=== PATIENT | female | born 1950 | race Caucasian/White ===

== ENCOUNTER 2016-06-08 08:48 | Day surgery (SDC) | payer OTHER, MEDICARE ==
[~2016-06-08] VITALS: Ht 154.9 cm; Wt 66.7 kg
[~2016-06-08 08:48] MED LIST: LEVO125T11 PO; LIDOCAINE 1% (10mg/ml) 2ml SDV INJ ONE; LR 1,000 ML IV SCH; MUPI22OI2 TOP; TACR100O2 TOP
[2016-06-08 09:09] VITALS: BP 123/76; PULSE 68; RESP 16; TEMP 98.1; O2SAT 96; Ht 154.9 cm; Wt 66.7 kg
--- NOTE | 2016-06-08 09:42 | ANESPREOP ---
Anesthesia Record Date and Time DATE: 06/08/16 TIME: 09:40 Pre-Op Diagnosis screening Proposed Surgical Procedure COLONOSCOPY NPO since: mn Allergies: Coded Allergies: ibuprofen (Verified Allergy, Mild, RASH, 06/08/16) Penicillins (Verified Allergy, Unknown, rashes around eyes, 06/08/16) Ht/Wt/BMI Height: 5 ' 1.00 " Weight: 66.700 kg BMI: 27.8 kg/m2 Vital Signs Date Time Temp Pulse Resp B/P Pulse Ox O2 Delivery O2 Flow Rate FiO2 06/08/16 09:09 98.1 68 16 123/76 96 Room Air Medications Inpatient Medications Current Medications Medications (Trade) Dose Ordered Sig/Salvador Start Time Stop Time Status Last Admin Dose Admin Lactated Ringer's (Lactated Ringers) 1,000 ml @ 50 mls/hr Q20H 06/08/16 07:00 06/08/16 09:35 50 MLS/HR Levothyroxine Sodium (Levothyroxine Sodium) 125 Mcg Tablet, 0.5 TAB PO DAILY, ( Reported) Last Taken: on 06/07/16 0300 Mupirocin (Mupirocin) 22 Gm Oint...g., 1 APPLIC TOP TID PRN for RASH, (Reported) Last Taken: on Unknown Date & Time Tacrolimus (Protopic) 100 Gm Oint...g., 1 APPLIC TOP BID PRN for RASH, (Reported) Last Taken: on Unknown Date & Time Currently on Beta Donnell: No Medical/Surgical History Anesthesia PMH: Reports: Arthritis, Hiatal Hernia (HX 1972), Other (stress test due to family history, personel history of chest pain most likely dur to GERD), Reflux, Thyroid Disease (hypothyroidism ), Denies: *Diabetes, Anesthesia Reactions (NO AIRWAY ISSUES), Cancer, Clotting Problems, Glaucoma, Malignant Hyperthermia, Renal Disease, Sleep Apnea Smoking Status: Never smoker Substance Use Type: does not use Alcohol Intake: none HX of Last Menstrual Period: AGE 59 Past Surgical History Orthopedic Surgeries: Abdominal Surgeries: Genitourinary Surgeries: Cardiac Surgeries: Endocrine Surgeries: Reproductive Surgeries: Neurological Surgeries: Ear Surgeries: Nose Surgeries: Throat Surgeries: Other Surgeries: Yes - colonoscopy Anesthesia Adverse Reactions: FOUND none Family Hx of Anesthesia Advers: malignant hyperthermia (aunt) Pertinent Findings EKG Rhythm: Sinus Rhythm Physical Exam Respiratory: Bilat breath sounds equal, Lungs clear Cardiovascular: FOUND Regular rate, rhythm, FOUND No murmur Airway Assessment Mallampati Score: II TMD: 3 Fingerbreadths Neck Extension: Good Overall Assessment: No Airway Concerns ASA: 2 Plan Anesthesia Plan: TIVA Discussion Discussed risks/options/alternatives of anesthesia and questions answered. Patient consents. Nursing pain assessment noted. Attestation Statement Prior to the delivery of any anesthetic medication, I examined the patient, developed the plan, obtained the patient's consent and discussed the risk and benefits of the procedure with the patient/guardian. ISABEL WAKEFIELD SURGERY AIDE Jun 08, 2016 09:42
[2016-06-08] MEDS ORDERED: LIDOCAINE 2% (20mg/ml) 5ml PF SDV ONE (10:26)
[2016-06-08] MEDS ORDERED: PROPOFOL 500mg 50 ML IV ONE (10:26)
[2016-06-08] MEDS ORDERED: FENTANYL 100mcg/2ml INJECTION ONE (10:28)
[2016-06-08 10:56] VITALS: BP 123/76; PULSE 66; RESP 12; TEMP 97.7; O2SAT 93
[2016-06-08 11:11] VITALS: BP 108/62; PULSE 72; RESP 16; O2SAT 95
--- NOTE | 2016-06-08 11:19 | ANESPO ---
Post-Op Note Date 06/08/16 Time: 11:08 Status Pt Participated in Evaluation: Pt participated in person Vital Signs Date Time Temp Pulse Resp B/P Pulse Ox O2 Delivery O2 Flow Rate FiO2 06/08/16 11:11 72 16 108/62 95 Room Air 06/08/16 10:56 97.7 Respiratory Function: Airway patent Mental Status: Alert/oriented Pain Level Intensity: 1 Hydration: IV infusing Complications during Recovery None apparent Follow-Up Instructions Instructions Per Surgeon ISABEL WAKEFIELD CRNA Jun 08, 2016 11:19
[2016-06-08 11:26] VITALS: BP 124/73; PULSE 60; RESP 16; O2SAT 98
--- NOTE | 2016-06-09 07:25 | OPNOTEF ---
DATE OF PROCEDURE: 06/08/2016 SURGEON : Eduar Ogden MD PREOPERATIVE DIAGNOSIS Colorectal cancer surveillance/personal history of polyps. POSTOPERATIVE DIAGNOSIS Colorectal cancer surveillance/personal history of polyps, colonic polyps located within the cecum x 1, ascending colon x 1, 65 cm x 1 and 55 cm x 1. PROCEDURE: Colonoscopy with polypectomy via snare technique. ANESTHESIA: TIVA. BRIEF HISTORY/INDICATIONS Alice is a 65-year-old female patient at [facility] who was seen for a comprehensive exam. They discussed colorectal cancer and decided to proceed with a colonoscopy as a part of her screening. For completeness please refer to office notes. FINDINGS Upon colonoscopy there was no evidence for angiodysplastic lesions, diverticula or gerry malignancies. The patient was found to have four colonic polyps. The largest polyp was in the cecum, approximately 6-7 mm in size. It was removed via snare technique and sent to pathology. She had a smaller polyp within her ascending colon and two small polyps at 65 and 55 cm. These three polyps were removed via hot forceps technique and sent to pathology. DESCRIPTION OF PROCEDURE After informed consent was obtained, the patient was brought to the endoscopy suite and placed on the table in the left lateral decubitus position. The patient subsequently underwent total intravenous anesthesia by the nurse log rafter per my request. Next, a digital rectal examination was performed; normal sphincter tone. No rectal masses were appreciated. An Olympus colonoscope was inserted in the anus and advanced with the lumen of the colon under direct visualization at all times until the cecum was ascertained. Triangulation of the tenia coli, ileocecal valve and appendiceal lumen were all visualized. The scope was then slowly withdrawn, again while maintaining visualization of the lumen at all times. As stated above, the entire colon was without evidence for angiodysplastic lesions, diverticula or gerry malignancies. The patient was found to have four colonic polyps as described above. The largest was within the cecum. Photographs were obtained for documentation. The scope was continued to be withdrawn until it was removed from the patient's anal verge. The patient tolerated the procedure without difficulty and was sent back to the preoperative area in stable condition. We will call Alice with the results of her pathology. Due to the number of polyps and that they are all tubular adenomas, will likely be looking at three years, possibly sooner. JADA
== END 2016-06-08 11:36 | disposition home or self-care (01) ==
LOC: NSC 08:48
PROVIDERS: ATTEND Family Medicine
DX: Z12.11 Encounter for screening for malignant neoplasm of colon (principal); D12.0 Benign neoplasm of cecum; D12.2 Benign neoplasm of ascending colon; D12.6 Benign neoplasm of colon, unspecified; Z86.010 Personal history of colon polyps; E03.9 Hypothyroidism, unspecified; J30.9 Allergic rhinitis, unspecified; K44.9 Diaphragmatic hernia without obstruction or gangrene; Z79.899 Other long term (current) drug therapy